=== PATIENT | female | born 1990 | race Caucasian/White ===

== ENCOUNTER 2018-10-25 06:31 | Day surgery (SDC) | payer BC, OTHER ==
[2018-10-25] MEDS ORDERED: Lactated Ringers 1,000 ML IV SCH (07:00)
[2018-10-25] MEDS ORDERED: fentaNYL 100 MCG/2 ML SDV ONE (07:04)
[2018-10-25] MEDS ORDERED: Midazolam 1 MG/ML 2 ML SDV ONE (07:04)
[2018-10-25] MEDS ORDERED: Propofol 200 MG/20 ML SDV ONE ×2 (07:04→07:56)
--- NOTE | 2018-10-25 12:46 | OR ---
DATE OF PROCEDURE: 10/25/2018 PREOPERATIVE DIAGNOSIS: Gastroesophageal reflux disease. POSTOPERATIVE DIAGNOSES: Mild gastritis, gastroesophageal reflux disease. PROCEDURE PERFORMED: Esophagogastroduodenoscopy with antral biopsies for CLOtest and for pathology to look for Helicobacter pylori, biopsy of gastroesophageal junction. ANESTHESIA: IV anesthesia with monitored anesthesia care. INDICATION: This 28-year-old white female is referred for upper endoscopy because of symptoms of gastroesophageal reflux disease. She has been taking a proton pump inhibitor which is only slightly helping. I counseled her for upper endoscopy with possible biopsy including risks and alternatives, and she gave her informed consent to proceed. DESCRIPTION OF PROCEDURE: The patient was placed in the left lateral decubitus position. IV anesthesia was administered by the Anesthesia Service. Time-out was held. The flexible video Olympus upper endoscope was passed through her mouth, down her esophagus, and into her stomach. The scope was easily passed through the pylorus into the duodenum reaching its third portion. The scope was then slowly withdrawn examining the mucosa throughout. The duodenal mucosa appeared unremarkable. The scope was brought back through the pylorus into the antrum. The antrum had a fine erythema consistent with mild gastritis. The scope was retroflexed. The most proximal stomach appeared unremarkable. The scope was straightened. We obtained antral biopsies for CLOtest, sent for pathology to look for Helicobacter pylori. The scope was brought up through the GE junction. There was no hiatal hernia. The Z-line was not straight suggestive of gastroesophageal reflux disease. Because of this, we obtained multiple totalling at least 6 biopsies of the gastroesophageal junction. The scope was then brought up through the remainder of the esophagus which otherwise appeared unremarkable and it was removed. She tolerated the procedure well. Semaj Rios MD /[id number]
== END 2018-10-25 09:10 | disposition home or self-care (01) ==
LOC: JP.SDS 06:31
PROVIDERS: ATTEND Surgery
DX: K21.9 Gastro-esophageal reflux disease without esophagitis (principal); K29.70 Gastritis, unspecified, without bleeding; K22.70 Barrett's esophagus without dysplasia; F41.9 Anxiety disorder, unspecified; Z88.0 Allergy status to penicillin; Z88.1 Allergy status to other antibiotic agents
CPT/HCPCS: 81025; 87081; 88305; J2250; J2704; J3010; J7120

== ENCOUNTER 2019-07-13 07:27 | Day surgery (SDC) | payer BC, OTHER ==
[~2019-07-13 07:27] MED LIST: Midazolam 1 MG/ML 2 ML SDV ONE; Propofol 200 MG/20 ML SDV ONE; fentaNYL 100 MCG/2 ML SDV ONE
[2019-07-13] MEDS ORDERED: Sodium Chloride 0.9% 1,000 ML IV SCH (08:15)
[2019-07-13] MEDS ORDERED: Propofol 200 MG/20 ML SDV ONE (08:29)
--- NOTE | 2019-07-13 11:39 | OR ---
DATE OF PROCEDURE: 07/13/2019 SURGEON: Moises Toavr MD PROCEDURE: Colonoscopy. FINDINGS: Sigmoid colon polyp, approximately 5 mm, completely removed using snare. COMPLICATION: None. MINE DEPUTY: None. PREOPERATIVE DIAGNOSIS: Family history of colorectal cancer. POSTOPERATIVE DIAGNOSIS: Family history of colorectal cancer. RISKS: Risks, benefits, alternatives, and limitations including, but limited to infection, bleeding, and perforation were explained to the patient who wished to proceed. PROCEDURE IN DETAIL: The patient was placed in left lateral decubitus position. Digital rectal exam was performed without abnormality. Scope was introduced and advanced atraumatically to the ileocecal valve. The scope was brought back through the ascending, transverse, descending colon, and retroflexed. In the sigmoid colon, this polyp was removed by snare. No colitis. No diverticulitis. No diverticulosis. No old or new blood. No abnormalities on retroflexion. The patient tolerated the procedure well. Moises Tovar MD /[id number]
== END 2019-07-13 10:25 | disposition home or self-care (01) ==
LOC: JP.SDS 07:27
PROVIDERS: ATTEND Surgery
DX: Z12.11 Encounter for screening for malignant neoplasm of colon (principal); D12.5 Benign neoplasm of sigmoid colon; K21.9 Gastro-esophageal reflux disease without esophagitis; F41.9 Anxiety disorder, unspecified; F32.9 Major depressive disorder, single episode, unspecified; Z80.0 Family history of malignant neoplasm of digestive organs
CPT/HCPCS: 45385; 81025; J2250; J2704; J3010; J7030; 88305

== ENCOUNTER 2021-12-10 07:53 | Day surgery (SDC) | payer BC, OTHER ==
[2021-12-10] MEDS ORDERED: fentaNYL 100 MCG/2 ML SDV ONE (08:20)
[2021-12-10] MEDS ORDERED: Midazolam 1 MG/ML 2 ML SDV ONE (08:20)
[2021-12-10] MEDS ORDERED: Propofol 200 MG/20 ML SDV ONE ×2 (08:20→10:03)
[2021-12-10] MEDS ORDERED: Sodium Chloride 0.9% 1,000 ML IV SCH (09:00)
== END 2021-12-10 11:36 | disposition home or self-care (01) ==
LOC: JP.SDS 07:53
PROVIDERS: ATTEND Surgery
DX: R10.9 Unspecified abdominal pain (principal); K21.9 Gastro-esophageal reflux disease without esophagitis; Z86.010 Personal history of colon polyps
CPT/HCPCS: J2250; J2704; J3010; J7030

== ENCOUNTER 2022-02-19 06:25 | Day surgery (SDC) | payer BC, OTHER ==
[2022-02-19] MEDS ORDERED: Sodium Chloride 0.9% 1,000 ML IV SCH (07:00)
[2022-02-19] MEDS ORDERED: fentaNYL 100 MCG/2 ML SDV ONE (07:09)
[2022-02-19] MEDS ORDERED: Propofol 200 MG/20 ML SDV ONE (07:09)
[2022-02-19] MEDS ORDERED: Midazolam 1 MG/ML 2 ML SDV ONE (07:09)
== END 2022-02-19 09:00 | disposition home or self-care (01) ==
LOC: JP.SDS 06:25
PROVIDERS: ATTEND Surgery
DX: K20.90 Esophagitis, unspecified without bleeding (principal); K22.2 Esophageal obstruction; Z88.0 Allergy status to penicillin
CPT/HCPCS: 88305; J2250; J2704; J3010; J7030